=== PATIENT | male | born 1965 | race Caucasian/White ===

== ENCOUNTER → 2020-11-26 16:18 | Outpatient (CLI) | payer OTHER, SELFPAY ==
--- NOTE | 2020-11-26 16:46 | MRI_ITS ---
STUDY: MRI LEFT SHOULDER REASON FOR EXAM: Male, 54 years old. LEFT SHOULDER PAIN TECHNIQUE: Standardized fat and water weighted pulse sequences were obtained in all 3 orthogonal planes. COMPARISON: None. FINDINGS: Full-thickness supraspinatus/infraspinatus tendon tear measuring 3 cm x 2.4 cm with retraction to the level of the acromial undersurface (coronal image 10 series 5). Mild/moderate supraspinatus and infraspinatus tendinosis. Normal subscapularis tendon. Normal teres minor tendon. No significant muscle atrophy. Mild acute supraspinatus and infraspinatus muscle strains. Mild intracapsular long biceps tendinosis. Biceps labral anchor intact. Labral degeneration with tearing (axial image 9 series 2). Capsular ligaments intact. Normal rotator cuff interval. Small volume glenohumeral joint effusion with fluid extending through tear into the subacromial subdeltoid bursa. Moderate glenohumeral cartilage loss predominating inferiorly. Moderate acromioclavicular joint arthrosis with anterior impingement. No acute fracture, dislocation or osseous destruction. Intact coracohumeral and coracoacromial ligaments. Normal quadrilateral space. Normal axillary space. Normal deltoid muscle. Normal trapezius muscle. MRI/Upper Ext Joint Only(Routine) IMPRESSION: Full-thickness retracted supraspinatus and infraspinatus tendon tear with underlying tendinosis Acute supraspinatus and infraspinatus muscle strains Mild intracapsular long biceps tendinosis Labral degeneration without tearing Moderate glenohumeral and AC joint arthrosis with anterior impingement Joint effusion extending to the tear into the subacromial subdeltoid bursa Electronically Signed: Hiram Aragon DO at 8:50 EST Tel , Service support ,
== END ==
PROVIDERS: PCP Family Medicine; Referring Provider Family Medicine; Visit Provider Family Medicine
DX: S43.402A Unspecified sprain of left shoulder joint, initial encounter (principal); X58.XXXA Exposure to other specified factors, initial encounter; Y93.9 Activity, unspecified; Y92.9 Unspecified place or not applicable; Y99.9 Unspecified external cause status
CPT/HCPCS: 73221

== ENCOUNTER → 2021-03-19 08:43 | Outpatient (CLI) | payer OTHER, BC, SELFPAY | PROVIDERS: PCP Student in an Organized Health Care Education/Training Program; Referring Provider Orthopaedic Surgery; Visit Provider Orthopaedic Surgery | DX: Z11.59 Encounter for screening for other viral diseases (principal) | CPT/HCPCS: 87635; C9803; U0005; U0003 ==